=== PATIENT | female | born 1980 | race Caucasian/White ===

== ENCOUNTER 2017-01-20 00:10 | Emergency (ER) | payer OTHER ==
[2017-01-20] MEDS ORDERED: LORazepam 0.5MG TABLET ONE ×2 (01:27→02:10)
[2017-01-20] MEDS ORDERED: ONDANSETRON ODT 4 MG ONE (01:52)
== END 2017-01-20 10:08 | disposition home or self-care (01) ==
LOC: ED 03:45
DX: F41.1 Generalized anxiety disorder (principal)
CPT/HCPCS: 93005; 99284